=== PATIENT | male | born 1980 | race Caucasian/White ===

== ENCOUNTER 2016-11-17 02:07 | Emergency (ER) | payer BC ==
[~2016-11-17] VITALS: Ht 175.3 cm; Wt 79.5 kg
[~2016-11-17 02:07] MED LIST: AC500T PO; ALMO12.5 PO; ASPI1TAB22 PO; DEXL60CA5 PO; DIAZ5TAB PO; DULO60CA58 PO; DULO60CA7 PO; FLX20C PO; GABA300C PO; HYDR-3811 PO; HYDR-3881 PO; IBP800T PO; IBUP-793 PO; MELO-249 PO; MORP30CA16 PO; NFLYR75C PO; OMEP20TA PO; ONDA4TAB8 PO; ONDAN4ODT PO; ONDN4T PO; OXYC-109 PO; OXYC10TA7 PO; OXYC1TAB7 PO; OXYC1TAB87 PO; TAMS-8 PO; TIZA4CAP6 PO; TRAM-291ED PO; TRM50T PO; [UNRECOGNIZED DRUG - CODE] MC; [UNRECOGNIZED DRUG - CODE] PO
--- OUTSIDE RECORDS SUMMARY | 2016-11-17 02:11 | XMS REPORT | Continuity of Care Document ---
Author Author [facility] Organization [facility] Address Unknown Phone Unavailable Care Team Providers Care Roving Marker Name Role Phone Carlos López PCP [phone] Source Comments Some departments are not documenting in the electronic medical record. If you do not see the information that you expected, contact Release of Information in the Health Information Management department at [phone] for further assistance in locating additional records.[facility] Active Allergies and Adverse Reactions No Known Allergies Current Medications Prescription Sig. Disp. Refills Start End Date Status Date tiZANidine (ZANAFLEX) 4 Take 1 Tab by mouth at 60 Tab 3 04/28/20 Active mg tablet bedtime as needed. Take 16 one to two tablets by mouth at bedtime as needed Active Problems Not on file Social History Tobacco Use Types Packs/Day Years Used Date Never Assessed Plan of Care Health Maintenance Due Date Last Done Comments Physical (Comprehensive) 1986 Exam Pertussis Vaccine 1990 Tetanus Vaccine 1996 Influenza Vaccine 07/16/2016 Results from Last 3 Months Not on file
--- OUTSIDE RECORDS SUMMARY | 2016-11-17 02:14 | XMS REPORT | Continuity of Care Document ---
Author Author [facility] Organization [facility] Address Unknown Phone Unavailable Care Team Providers Care Truck Sales Manager Name Role Phone Carlos López PCP [phone] Source Comments Some departments are not documenting in the electronic medical record. If you do not see the information that you expected, contact Release of Information in the Health Information Management department at [phone] for further assistance in locating additional records.[facility] Active Allergies and Adverse Reactions No Known [...]
[2016-11-17] MEDS ORDERED: PREG150C PO (02:21)
[2016-11-17] MEDS ORDERED: DEXL30CA2 PO (02:22)
[2016-11-17] MEDS ORDERED: SODIUM CHLORIDE FLUSH 10 ML SYR IV PRN (02:25)
[2016-11-17] MEDS ORDERED: KETOROLAC 30 MG/ML (TORADOL) 1 ML VIAL IV ONE (02:25)
[2016-11-17] MEDS ORDERED: SODIUM CHLORIDE FLUSH 3 ML SYR IV PRN (02:25)
[2016-11-17] MEDS ORDERED: ONDANSETRON 2 MG/ML (Z0FRAN) 2 ML VIAL IV ONE (02:25)
[2016-11-17] MEDS ORDERED: HYDROmorphone 1 MG/ML (DILAUDID) SYRINGE IV PRN (02:30)
[2016-11-17] MEDS ORDERED: HYDR-3702 PO (03:58)
[2016-11-17] MEDS ORDERED: ED- HYDROcodone/ACETAMINOPHEN 5MG/325MG (NORCO) 6 TABLETS/BTL PO ONE (04:00)
[2016-11-17 04:13] LABS: BILIRUBIN,URINE Negative (Negative); COLOR,URINE Yellow; GLUCOSE, URINE (UA) Negative (Negative); LEUKOCYTE ESTERASE ,URINE Negative (Negative); PH,URINE 6.5 (5.0 - 8.0); UROBILINOGEN,URINE 0.2 mg/dL (0.2-1.0)
[2016-11-17 04:14] LABS: CLARITY,URINE Slightly Cloudy
[2016-11-17 04:27] VITALS: BP 127/78
[2016-11-17 04:55] LABS: RBC,URINE >100 /HPF; URINE CENTRIFUGED VOLUME 12 mL
--- NOTE | 2016-11-17 08:54 | Diagnostic Imaging Report ---
PROCEDURE: CT abdomen and pelvis without contrast. TECHNIQUE: Multiple contiguous axial images were obtained through the abdomen and pelvis without the use of intravenous contrast. INDICATION: Left flank pain. COMPARISON: CT abdomen and pelvis without and with IV contrast 09/29/2016. FINDINGS: Since the prior exam, there is a new renal stone in the left ureterovesicular junction measuring approximately 4 mm resulting in mild to moderate dilatation of the left ureter and renal pelvis. Enlargement and perinephric stranding about the left kidney. No other obstructing renal stones. There are several nonobstructing calyceal tip renal stones in both kidneys measuring up to 3 mm on the right and 4 mm on the left. Appendectomy. The liver, gallbladder, pancreas, spleen, adrenals are negative. No free intraperitoneal air/fluid, lymphadenopathy or evidence of bowel obstruction. Postoperative changes of anterior fusion at L5-S1. Osseous structures are otherwise unremarkable. IMPRESSION: 4 mm renal stone in the left UVJ resulting in mild to moderate left hydronephrosis. Dictated by: Dictated on workstation # [id number]
== END 2016-11-17 04:28 | disposition home or self-care (01) ==
LOC: ED 02:10
DX: N13.2 Hydronephrosis with renal and ureteral calculous obstruction (principal)
CPT/HCPCS: 74176; 81003; 81015; 82365; 96361; 96374; 96375; 99284; J1170; J1885; J2405; J7030; 99283

== ENCOUNTER → 2017-02-18 | Outpatient (CLI) | payer BC ==
[~2017-02-18] MED LIST changes: +DEXL30CA2 PO; +HYDR-3702 PO; +PREG150C PO
--- NOTE | 2017-02-18 09:54 | Diagnostic Imaging Report ---
INDICATION: Pre-MRI screening. FINDINGS: No radiopaque foreign bodies are demonstrated. IMPRESSION: Negative orbits for foreign body. Report given to nurse (Enedina) at 9:53 a.m. 02/18/2017/cb Dictated by: Dictated on workstation # [id number]
--- NOTE | 2017-02-18 11:36 | Diagnostic Imaging Report ---
CLINICAL INDICATION: Patient with chronic low back pain. Patient reports lower back pain for years. Prior surgery in the lumbar spine. EXAM: MRI of the lumbar spine performed without and with 15 cc of ProHance IV contrast. Sagittal T2, sagittal T1, sagittal T2 fat-sat, axial T1, axial T2, axial T1 fat-sat post IV contrast, and sagittal T1 fat-sat post IV contrast. COMPARISON: MRI of the lumbar spine without and with IV contrast dated 02/15/2015. FINDINGS: There are stable postop changes to the lower lumbar spine with L5-S1 anterior lumbar interbody fusion. There is no abnormal IV contrast enhancement seen on this exam. Besides postop changes, there is no significant paraspinal soft tissue abnormality. Five lumbar type vertebra are identified. Lumbar spine has normal alignment with no fracture or dislocation. The lumbar vertebra have normal T1 and T2 signal. The visualized portions of the distal spinal cord, conus medullaris, and cauda equina have normal anatomic appearance. The conus medullaris tip is seen at the upper L1 vertebral body level. There is no significant central spinal canal or neural foramen narrowing. The intervertebral disk spaces are well-preserved. L1-L2: Unremarkable. L2-L3: Unremarkable. L3-L4: Unremarkable. L4-L5: Unremarkable. L5-S1: Stable anterior lumbar interbody fusion with no significant abnormality. Stable minimal postoperative enhancement in the anterior right subarticular region about the right S1 nerve root. IMPRESSION: 1: Stable L5-S1 anterior lumbar interbody fusion with no significant abnormality. 2: The remainder of lumbar spine shows no abnormal IV contrast enhancement, and no significant interval lumbar spine abnormality. Dictated by: Dictated on workstation # [id number]
== END ==
LOC: RAD 09:14
PROVIDERS: ATTEND Family Medicine
DX: Z00.00 Encounter for general adult medical examination without abnormal findings (principal); M54.5 Low back pain
CPT/HCPCS: 70140; 72158; A9579